=== PATIENT | female | born 1995 | race African-American/Black ===

== ENCOUNTER 2022-04-16 20:55 | Emergency (ER) | payer OTHER ==
[2022-04-16 21:39] VITALS: BP 143/69; PULSE 122; RESP 19; TEMP 103.2; BMI 27.4
[2022-04-16] MEDS ORDERED: IBUPROFEN 600 MG TABLET (FP) PO ONE (22:48)
[2022-04-16] MEDS ORDERED: ACETAMINOPHEN 500 MG TABLET (FP) PO ONE (22:48)
[2022-04-16] MEDS ORDERED: ALBUTEROL SO4 HFA INHALER IH ONE (23:32)
[2022-04-17] MEDS ORDERED: ALBUTEROL SO4 HFA INHALER IH ONE
[2022-04-17] MEDS ORDERED: ACETAMINOPHEN 325 MG TABLET (FP) ONE
[2022-04-17] MEDS ORDERED: IBUPROFEN 600 MG TABLET (FP) PO ONE (00:01)
== END 2022-04-17 00:09 | disposition home or self-care (01) ==
LOC: JER 20:55
DX: J09.X2 Influenza due to identified novel influenza A virus with other respiratory manifestations (principal); R50.9 Fever, unspecified; R05.1 Acute cough
CPT/HCPCS: 0241U-QW; 99283-25